=== PATIENT | male | born 1975 | race Caucasian/White ===

== ENCOUNTER 2016-09-03 09:52 | Emergency (ER) | payer OTHER ==
[~2016-09-03] VITALS: Ht 175.3 cm; Wt 104.3 kg
--- NOTE | 2016-09-03 10:03 | ED GI/GU/ABDOMINAL COMPLAINT ---
History of Present Illness General Chief Complaint: General Adult Stated Complaint: SENT IN BY CLINIC FOR U/S Source: patient Exam Limitations: no limitations Vital Signs & Intake/Output Vital Signs & Intake/Output Vital Signs Date Time Temp Pulse Resp B/P Pulse O2 O2 Flow FiO2 Ox Delivery Rate 09/03 1223 97.1 80 18 146/88 98 Room Air 09/03 0956 96.3 81 16 158/100 99 Room Air ED Intake and Output 09/04 0000 09/03 1200 Intake Total 0 Output Total Balance 0 Intake, Oral 0 Patient 230 lb Weight Allergies Coded Allergies: No Known Allergies (09/03/16) Reconcile Medications Levothyroxine Sodium 50 MCG TABLET 1 TAB PO DAILY AC THYROID (Reported) Lisinopril 30 MG TABLET 1 TAB PO DAILY HEART (Reported) Triage Note: 41 Y/O MALE C/O RLQ PAIN AND PAIN IN R TESTICLE X 1 WEEK; STATES HE WAS EVALUATED LAST WEEK FOR BACK PAIN RELATED TO A WORK INJURY. STATES BACK FEELS BETTER AND NOW HE IS HAVING ABDOMINAL/TESTICULAR PAIN. FOLLOWED UP AT [facility] AND WAS REFERRED TO ED FOR ULTRASOUND. PT DENIES URINARY SYMPTOMS BUT STATES CLINIC SAW BLOOD IN URINE. PT DENIES N/V/D. PT DENIES SWELLING OR REDNESS TO TESTICLE. Triage Nurses Notes Reviewed? yes HPI: Patient is a 41-year-old male presents complaining of suprapubic pain radiating into the right testicle. Pain for approximately one week. Patient injured his back at work one week ago, reports that the back pain has improved but as the back pain was improving he began with the right testicular pain. Patient was seen at an urgent care clinic today had a urinalysis which showed hematuria and was referred to the emergency department for further evaluation and to rule out testicular torsion. Patient reports the pain is moderate to severe, worsens with sitting mild improvement with standing. Patient is in a monogamous heterosexual relationship with his daughter's mother. Patient denies penile discharge, dysuria, lumps or bulges. (PIYUSH KIMBROUGH) Past History Travel History Traveled to [place] past 21 day No Medical History Any Pertinent Medical History? see below for history Neurological: NONE EENT: NONE Cardiovascular: hypertension Respiratory: NONE Gastrointestinal: NONE Hepatic: NONE Renal: NONE Musculoskeletal: NONE Psychiatric: NONE Endocrine: hypothyroidism Blood Disorders: NONE Cancer(s): NONE BUSINESS OFFICE REPRESENTATIVE/Reproductive: NONE Surgical History Surgical History: non-contributory Psychosocial History What is your primary language Lao Tobacco Use: Never used Family History Hx Contributory? No (PIYUSH KIMBROUGH) Review of Systems Review of Systems Constitutional: Denies: chills, fever. Respiratory: Denies: cough, short of breath. Cardiovascular: Denies: chest pain. GI: Reports: abdominal pain (suprapubic). Denies: nausea, vomiting. Genitourinary: Reports: see HPI, pain. Denies: dysuria, frequency. Musculoskeletal: Reports: back pain (improving). Skin: Reports: no symptoms. Neurological/Psychological: Denies: headache, numbness. Hematologic/Endocrine: Denies: bruising, bleeding. Immunologic/Allergic: Denies: splenectomy. (PIYUSH KIMBROUGH) Physical Exam Physical Exam General Appearance: well developed/nourished, alert, awake Head: atraumatic, normal appearance Eyes: Bilateral: normal appearance, PERRL, EOMI. Ears, Nose, Throat, Mouth: hearing grossly normal, moist mucous membrane Neck: normal inspection, supple, full range of motion Respiratory: no respiratory distress Gastrointestinal: soft, non-tender Male Genitals: NO TESTICULAR OR EPIDIDYMAL TENDERNESS. nO PALPABLE HERNIA IN THE INGUINAL CANAL Back: normal inspection, normal range of motion Extremities: normal range of motion Neurologic/Psych: no motor/sensory deficits, awake, alert, oriented x 3, normal gait, normal mood/affect Skin: intact, normal color, warm/dry Core Measures ACS in differential dx? No Severe Sepsis Present: No Septic Shock Present: No (PIYUSH KIMBROUGH) Progress Differential Diagnosis: kidney stone, urinary tract infection, sexually transmitted disease, orchitis, epididymitis, testicular torsion, hernia, back strain, cauda equina syndrome Plan of Care: Orders Procedure Date/time Status URINALYSIS 09/03 1014 Complete Laboratory Tests 09/03/16 1108: Urine Color YEL, Urine Clarity CLEAR, Urine pH 6.0, Ur Specific [employer] >= 1.030 , Urine Protein NEG, Urine Ketones NEG, Urine Nitrite NEG, Urine Bilirubin NEG, Urine Urobilinogen 0.2, Ur Leukocyte Esterase NEG, Ur Microscopic SEDIMENT EXAMINED, Urine RBC 3-5, Urine WBC RARE, Urine Mucus RARE, Urine Hemoglobin MOD H, Urine Glucose NEG 09/03/2016 12:22:52 PM: Results of ultrasound and urinalysis reviewed with patient. Patient appears stable for discharge and to follow-up with urology. (PIYUSH KIMBROUGH) Initial ED EKG: none (PIYUSH KIMBROUGH) Departure Departure Disposition: HOME OR SELF CARE Condition: Stable Clinical Impression Primary Impression: Testicular pain, right Referrals: LOUIS RIVERA,FRANK SMITH APRN Additional Instructions: Follow up with Dr. Du(urologist) for further evaluation. Call today for appointment. Return to the ER if numbness, weakness, incontinence, fevers, rash , or worsening of symptoms. Departure Forms: Customer Survey General Discharge Information (PIYUSH KIMBROUGH) PA/BULLET MAKER Co-Sign Statement Statement: ED Attending supervision documentation- [] I saw and evaluated the patient. I have also reviewed all the pertinent lab results and diagnostic results. I agree with the findings and the plan of care as documented in the PA's/BULLET MAKER's documentation. [X] I have reviewed the ED Record and agree with the PA's/BULLET MAKER's documentation. [] Additions or exceptions (if any) to the PAs/BULLET MAKER's note and plan are summarized below: [] (BRI RIVERA,RISHI)
[2016-09-03] MEDS ORDERED: LISINOPRIL30 M1 PO (10:27)
[2016-09-03] MEDS ORDERED: LEVOTHYROXINE50 MCG PO (10:28)
--- NOTE | 2016-09-03 11:54 | ULTRASOUND REPORT ---
EXAMINATION: US RETROPERITONEAL COMPLETE (RENAL) CLINICAL INFORMATION: Evaluate for right ureteral stone. COMPARISON: None TECHNIQUE: Real-time imaging of the kidneys and bladder. FINDINGS: RIGHT KIDNEY: 11 x 5.6 x 5.8 cm (SAG x AP x TRV). The kidney is normal in size, contour, and echogenicity. Renal cortical thickness is normal. No calculi or focal parenchymal lesions. No hydronephrosis. LEFT KIDNEY: 10.9 x 5.9 x 4.8 cm (SAG x AP x TRV). The kidney is normal in size, contour, and echogenicity. Renal cortical thickness is normal. No calculi or focal parenchymal lesions. No hydronephrosis. BLADDER: Empty urinary bladder. IMPRESSION: Unremarkable bilateral kidneys.
--- NOTE | 2016-09-03 11:55 | ULTRASOUND REPORT ---
EXAMINATION: US SCROTUM CLINICAL INFORMATION: Right testicular pain. COMPARISON: None. TECHNIQUE: A sonogram of the scrotum was performed assessing lucia-scale appearance and color Doppler flow. FINDINGS: RIGHT: Right testicle measures 4.8 x 2.4 x 3.3 cm, volume 27 mL. Parenchymal echotexture is normal. No focal testicular parenchymal lesions are visualized. Normal symmetric intratesticular flow is visualized. Right epididymal head is normal in size. There is a 0.5 x 0.7 x 0.8 cm epididymal head cyst with layering internal echoes. Small right hydrocele. No varicocele. LEFT: Left testicle measures 4.3 x 2.5 x 3.6 cm, volume 27.5 mL. Parenchymal echotexture is normal. No focal testicular parenchymal lesions are visualized. Normal symmetric intratesticular flow is visualized. Left epididymal head is normal in size. No left hydrocele or varicocele is seen. IMPRESSION: No evidence of testicular torsion. 0.8 cm complex right epididymal head cyst. Small right-sided hydrocele.
[2016-09-03 12:23] VITALS: BP 146/88
== END 2016-09-03 12:24 ==
LOC: ERH 09:52
DX: N50.811 Right testicular pain (principal)
CPT/HCPCS: 76775; 81001